=== PATIENT | female | born 1995 | race Caucasian/White ===

== ENCOUNTER 2018-11-27 04:35 | Emergency (ER) | payer MEDICAID ==
[~2018-11-27] VITALS: Ht 170.2 cm; Wt 61.0 kg
[2018-11-27] MEDS ORDERED: KETOROLAC 60MG/2ML VIAL IM ONE (05:30)
[2018-11-27 06:18] LABS: CLARITY URINE CLOUDY (CLEAR); COLOR URINE YELLOW (YELLOW); KETONES URINE TRACE (NEGATIVE); LEUKOCYTE ESTERASE URINE 1+ (NEGATIVE); NITRITE URINE NEGATIVE (NEGATIVE); OCCULT BLOOD URINE NEGATIVE (NEGATIVE); PH URINE 5.5 (4.5-8.0); PROTEIN URINE NEGATIVE (NEGATIVE); SPECIFIC GRAVITY URINE 1.018 (1.005-1.030); UROBILINOGEN URINE 0.2 E.U./dL (0.2-1.0)
[2018-11-27 07:00] VITALS: BP 101/52
== END 2018-11-27 07:37 | disposition home or self-care (01) ==
LOC: ER 04:47
DX: S20.212A Contusion of left front wall of thorax, initial encounter (principal); S40.012A Contusion of left shoulder, initial encounter; S20.222A Contusion of left back wall of thorax, initial encounter; S30.1XXA Contusion of abdominal wall, initial encounter; Z91.018 Allergy to other foods; Y08.89XA Assault by other specified means, initial encounter; Y93.39 Activity, other involving climbing, rappelling and jumping off; Y92.488 Other paved roadways as the place of occurrence of the external cause; Y99.8 Other external cause status
CPT/HCPCS: 71101; 81003; 96372; 99284; J1885

== ENCOUNTER 2019-11-09 01:09 | Emergency (ER) | payer MEDICAID, OTHER ==
[~2019-11-09] VITALS: Ht 172.7 cm; Wt 78.0 kg
[2019-11-09 01:24] VITALS: BP 115/71
[2019-11-09] MEDS ORDERED: KETOROLAC 60MG/2ML VIAL IM ONE ×2 (02:00→02:11)
== END 2019-11-09 06:15 | disposition home or self-care (01) ==
LOC: ER 01:09
DX: M79.604 Pain in right leg (principal); M25.561 Pain in right knee; Z91.018 Allergy to other foods; Y04.0XXA Assault by unarmed brawl or fight, initial encounter; W01.0XXA Fall on same level from slipping, tripping and stumbling without subsequent striking against object, initial encounter; Y93.89 Activity, other specified; Y92.018 Other place in single-family (private) house as the place of occurrence of the external cause
CPT/HCPCS: 73502; 73562; 81025; 99284; J1885

== ENCOUNTER 2023-04-30 11:19 | Emergency (ER) | payer MEDICAID, OTHER ==
[~2023-04-30] VITALS: Ht 167.6 cm; Wt 70.0 kg
[2023-04-30 11:35] VITALS: BP 131/83; PULSE 80; RESP 16; TEMP 98; O2SAT 99
== END 2023-04-30 18:25 | disposition left against medical advice (07) ==
LOC: ER 11:19
DX: R51.9 Headache, unspecified (principal); Z53.21 Procedure and treatment not carried out due to patient leaving prior to being seen by health care provider
CPT/HCPCS: 99281